=== PATIENT | male | born 1955 | race Caucasian/White ===

== ENCOUNTER 2020-01-09 15:45 | Inpatient (IN) | payer OTHER ==
[~2020-01-09] VITALS: Ht 175.3 cm; Wt 55.1 kg
[2020-01-09 16:50] LABS: BASOPHILS PERCENT AUTO 1 % (0-2); EOSINOPHILS ABSOLUTE AUTO 0.06 K/mm3 (0.00-0.68); EOSINOPHILS PERCENT AUTO 0 % (0-6); Hematocrit 43.9 % (37.0-53.0); Hemoglobin 15.1 g/dL (13.5-17.5); IMMATURE GRAN ABSOLUTE AUTO 0.06 K/mm3 (0.00-0.10); IMMATURE GRAN PERCENT AUTO 0 % (0-1); LYMPHOCYTES ABSOLUTE AUTO 3.98 K/mm3 (0.84-5.20); LYMPHOCYTES PERCENT AUTO 26 % (21-46); MONOCYTES ABSOLUTE AUTO 0.77 K/mm3 (0.16-1.47); MONOCYTES PERCENT AUTO 5 % (4-13); Mean Corpuscular HGB 32.5 pg (26.0-34.0); Mean Corpuscular HGB Conc 34.4 g/dL (31.5-36.5); Mean Corpuscular Volume 95 fL (80-100); Mean Platelet Volume 8.8 fL (9.1-12.4); NEUTROPHILS ABSOLUTE AUTO 10.53 K/mm3 (1.96-9.15); NEUTROPHILS PERCENT AUTO 68 % (41-73); Platelet Count 492 K/mm3 (150-400); RDW Coefficient Variation 12.7 % (11.7-14.2); RDW Standard Deviation 43.8 fL (35.1-46.3); Red Blood Cell Count 4.64 M/mm3 (4.30-5.90)
[2020-01-09 17:04] LABS: International Normalized Ratio 0.97; Prothrombin Time Results 10.4 Sec (9.7-11.5)
[2020-01-09 17:06] LABS: Alanine Aminotransfer (ALT/SGP 23 U/L (12-78); Albumin, Blood 3.7 g/dL (3.4-5.0); Albumin/Globulin Ratio 0.7 (0.8-1.8); Alk Phos 133 U/L (50-136); Anion Gap 8 mmol/L (6-16); Aspartate Aminotrans (AST/SGOT 17 U/L (12-37); Bilirubin, Total 0.5 mg/dL (0.1-1.0); Blood Urea Nitrogen 19 mg/dL (8-24); Bun/Creatinine Ratio 17.1 (12.0-20.0); CO2, Blood 26 mmol/L (21-32); Calcium, Blood 9.6 mg/dL (8.5-10.1); Chloride, Blood 102 mmol/L (98-108); Creatinine, Blood 1.11 mg/dL (0.60-1.20); Globulin, Blood 5.2 g/dL (2.2-4.0); Glomerular Filtration Rate >60 (60-); Glucose, Blood 98 mg/dL (70-99); Potassium, Blood 3.8 mmol/L (3.5-5.5); Sodium, Blood 136 mmol/L (136-145); Total Protein, Blood 8.9 g/dL (6.4-8.2)
[2020-01-09] MEDS ORDERED: BLOOD PRESSURE PILL (21:04)
[2020-01-09] MEDS ORDERED: TIOT18 INH (21:43)
[2020-01-09] MEDS ORDERED: Guaifenesin Wit10 ML PO (21:43)
[2020-01-09] MEDS ORDERED: ALBU90OI INH (21:43)
[2020-01-09 22:09] LABS: Source, Urine Clean Catch
[2020-01-09 22:12] LABS: Bilirubin, Urine Neg (Neg); Blood, Urine 4+ (Neg); Glucose Qualitative, Urine Neg (Neg); Ketones, Urine Neg (Neg); Leukocyte Esterase, Urine 3+ (Neg); Nitrite, Urine Pos (Neg); Protein, Urine 2+ (Neg); Specific Gravity, Urine 1.015 (1.003-1.022); Urobilinogen, Urine NORM (Normal); pH, Urine 6.5 (5.0-8.0)
[2020-01-09 22:14] LABS: Appearance, Urine Cloudy (Clear); Color, Urine Yellow (P-Yellow)
[2020-01-09 22:19] LABS: Bacteria Many /hpf; Red Blood Cells, Urine 0-2 /hpf (0-2); Squamous Epithelial Cells Few /hpf (Few); White Blood Cells, Urine TNTC /hpf (0-5)
[2020-01-10 05:21] LABS: BASOPHILS ABSOLUTE AUTO 0.07 K/mm3 (0.00-0.23); BASOPHILS PERCENT AUTO 1 % (0-2); EOSINOPHILS ABSOLUTE AUTO 0.08 K/mm3 (0.00-0.68); EOSINOPHILS PERCENT AUTO 1 % (0-6); Hematocrit 41.8 % (37.0-53.0); Hemoglobin 14.5 g/dL (13.5-17.5); IMMATURE GRAN ABSOLUTE AUTO 0.06 K/mm3 (0.00-0.10); IMMATURE GRAN PERCENT AUTO 0 % (0-1); LYMPHOCYTES ABSOLUTE AUTO 2.27 K/mm3 (0.84-5.20); LYMPHOCYTES PERCENT AUTO 17 % (21-46); MONOCYTES ABSOLUTE AUTO 0.78 K/mm3 (0.16-1.47); MONOCYTES PERCENT AUTO 6 % (4-13); Mean Corpuscular HGB 32.2 pg (26.0-34.0); Mean Corpuscular HGB Conc 34.7 g/dL (31.5-36.5); Mean Corpuscular Volume 93 fL (80-100); Mean Platelet Volume 8.6 fL (9.1-12.4); NEUTROPHILS ABSOLUTE AUTO 10.11 K/mm3 (1.96-9.15); NEUTROPHILS PERCENT AUTO 76 % (41-73); Platelet Count 450 K/mm3 (150-400); RDW Coefficient Variation 12.4 % (11.7-14.2); RDW Standard Deviation 42.6 fL (35.1-46.3); Red Blood Cell Count 4.51 M/mm3 (4.30-5.90); White Blood Cell Count 13.37 K/mm3 (4.00-11.30)
--- NOTE | 2020-01-10 05:38 | NUR ---
SHIFT SUMMARY NEW ADMIT TO FLOOR EARLIER THIS AM. AOX4. VSS. TELE NSR HR 70'S. DENIES PAIN, N/V OR DYSPNEA. ADMITTED FOR LRG R KIDNEY STONE, UTI & HYDRONEPHROSIS ALONG c EXTENSIVE MUCUS PLUGGING IN LLL. PLAN TO HAVE POSSIBLE KIDNEY STENTING PROCEDURE BY SUMMER TODAY, THEREFORE PT HAS BEEN NPO. PT DENIES FLANK PAIN, HAS BEEN UP TO URINATE W/O PAIN. SPO2 >90% ON RA. E/U RESPIRATIONS. LUNGS SOUND DIM IN BASES. CALL LIGHT IN REACH.
[2020-01-10 05:41] LABS: Alanine Aminotransfer (ALT/SGP 18 U/L (12-78); Albumin, Blood 3.2 g/dL (3.4-5.0); Albumin/Globulin Ratio 0.6 (0.8-1.8); Alk Phos 121 U/L (50-136); Anion Gap 9 mmol/L (6-16); Aspartate Aminotrans (AST/SGOT 16 U/L (12-37); Bilirubin, Total 0.4 mg/dL (0.1-1.0); Blood Urea Nitrogen 16 mg/dL (8-24); Bun/Creatinine Ratio 18.2 (12.0-20.0); CO2, Blood 23 mmol/L (21-32); Calcium, Blood 9.3 mg/dL (8.5-10.1); Chloride, Blood 107 mmol/L (98-108); Creatinine, Blood 0.88 mg/dL (0.60-1.20); Glomerular Filtration Rate >60 (60-); Glucose, Blood 100 mg/dL (70-99); Potassium, Blood 3.1 mmol/L (3.5-5.5); Sodium, Blood 139 mmol/L (136-145); Total Protein, Blood 8.2 g/dL (6.4-8.2)
[2020-01-10 14:49] LABS: Source, Urine Catheter
[2020-01-10 15:11] LABS: Color, Urine Yellow (P-Yellow)
[2020-01-10 15:14] LABS: Bacteria Many /hpf; Squamous Epithelial Cells Not Seen /hpf (Few); White Blood Cells, Urine TNTC /hpf (0-5)
--- NOTE | 2020-01-10 17:01 | NUR ---
SHIFT SUMMARY PT OUT TO DIGITAL CIRCUIT DESIGNER FOR NEPHROSTOMY PLACEMENT. RETURNED APPROX 1405 WITH [facility] RN STAYING FOR A SHORT TIME WITH PT. RETURNED DROWSY BUT AROUSABLE. FELT NAUSEATED AND ZOFRAN GIVEN WITH EFFECT. HAS BEEN SLEEPING SINCE RETURN WITH VS CHECKED REGULARLY. HAS BECOME MORE AWAKE AFTERNOON HAS PROGRESSED. ENCOUARGED PT TO CALL FOR HIS FIRST TRIP TO BATHROOM. NFEPHROSTOMY DRAINING THICK WHITE GREEN PURULENT DISCHARGE. HAS BEEN QUITE SWEATY UPON RETURN TO ROOM BUT DOESN'T FEEL DIAPHORETIC AFTER BEING BACK ON FLOOR FOR A PERIOD OF TIME. DIET ORDERED FOR SUPPER. WILL MONITER TOLERATION OF MEAL. REPORTS FEELING SORE BUT DENIES PAIN.
--- NOTE | 2020-01-11 05:22 | NUR ---
SHIFT SUMMARY AOX4. VSS. TELE NSR @80. HAD STENT & NEPHROSTOMY PLACE IN R KIDNEY YESTERDAY 01/10/20. NEPHROSTOMY BANDAGE WAS PEELING OFF, REINFORCED c TEGADERM DRESSING. NEPHROSTOMY BAG HAD THICK, CLOUDY, ABREU, PURULENT, FOUL SMELLING DRAINAGE. PT REPORTED BURNING c URINATION 1X, HOWEVER THIS AM HE DENIES & STATES HIS URINE IS "MORE CLEAR". PT REPORTED PRESSURE RT FLANK, RATING 4-5/10 FOR PAIN, MEDICATED 2X c 5MG OXYCODONE. IND IN ROOM. CALL LIGHT IN REACH.
[2020-01-11] MEDS ORDERED: HYDCHL25 PO (10:55)
[2020-01-11] MEDS ORDERED: IBU800 MG PO (10:56)
[2020-01-11] MEDS ORDERED: OXYC5 PO (12:09)
[2020-01-11] MEDS ORDERED: CEFD300 PO (12:10)
[2020-01-11 12:41] LABS: BASOPHILS ABSOLUTE AUTO 0.07 K/mm3 (0.00-0.23); BASOPHILS PERCENT AUTO 0 % (0-2); EOSINOPHILS ABSOLUTE AUTO 0.03 K/mm3 (0.00-0.68); EOSINOPHILS PERCENT AUTO 0 % (0-6); Hematocrit 44.4 % (37.0-53.0); IMMATURE GRAN ABSOLUTE AUTO 0.06 K/mm3 (0.00-0.10); IMMATURE GRAN PERCENT AUTO 0 % (0-1); LYMPHOCYTES ABSOLUTE AUTO 3.24 K/mm3 (0.84-5.20); LYMPHOCYTES PERCENT AUTO 21 % (21-46); MONOCYTES ABSOLUTE AUTO 0.83 K/mm3 (0.16-1.47); MONOCYTES PERCENT AUTO 5 % (4-13); Mean Corpuscular HGB 32.4 pg (26.0-34.0); Mean Corpuscular HGB Conc 33.8 g/dL (31.5-36.5); Mean Corpuscular Volume 96 fL (80-100); Mean Platelet Volume 9.1 fL (9.1-12.4); NEUTROPHILS ABSOLUTE AUTO 11.48 K/mm3 (1.96-9.15); NEUTROPHILS PERCENT AUTO 73 % (41-73); Platelet Count 476 K/mm3 (150-400); RDW Coefficient Variation 12.5 % (11.7-14.2); RDW Standard Deviation 44.3 fL (35.1-46.3); Red Blood Cell Count 4.63 M/mm3 (4.30-5.90); White Blood Cell Count 15.71 K/mm3 (4.00-11.30)
[2020-01-11 12:53] LABS: Alanine Aminotransfer (ALT/SGP 17 U/L (12-78); Albumin, Blood 3.3 g/dL (3.4-5.0); Albumin/Globulin Ratio 0.6 (0.8-1.8); Alk Phos 131 U/L (50-136); Anion Gap 8 mmol/L (6-16); Aspartate Aminotrans (AST/SGOT 18 U/L (12-37); Bilirubin, Total 0.4 mg/dL (0.1-1.0); Blood Urea Nitrogen 17 mg/dL (8-24); Bun/Creatinine Ratio 14.5 (12.0-20.0); CO2, Blood 25 mmol/L (21-32); Calcium, Blood 9.4 mg/dL (8.5-10.1); Chloride, Blood 103 mmol/L (98-108); Creatinine, Blood 1.17 mg/dL (0.60-1.20); Globulin, Blood 5.5 g/dL (2.2-4.0); Glomerular Filtration Rate >60 (60-); Glucose, Blood 98 mg/dL (70-99); Potassium, Blood 4.1 mmol/L (3.5-5.5); Sodium, Blood 136 mmol/L (136-145); Total Protein, Blood 8.8 g/dL (6.4-8.2)
--- NOTE | 2020-01-11 15:30 | NUR ---
DISCHARGE INSTRUCTIONS COMPLETED AD DISCUSSED WITH PT EXPRESSING UNDERSTANDING. EDUCATED ON HOW TO EMPTY NEPHROSTOMY BAG AND DRESSING CARE. DISCUSSED THE MONITERING OF OUTPUT AND NOTIFY MD IF OUTPUT STOPS. TO CURB VIA W/C.
== END 2020-01-11 15:25 | disposition home or self-care (01) | DRG 690 ==
LOC: ER 15:45 → MEDS 15:46
PROVIDERS: Emergency Medicine; Internal Medicine; Physician Assistant; Radiology Diagnostic Radiology; ADMIT Internal Medicine
PROC: 0T9330Z Drainage of Right Kidney Pelvis with Drainage Device, Percutaneous Approach (ICD-10-PCS; principal; 2020-01-10)
PROC: 0T767DZ Dilation of Right Ureter with Intraluminal Device, Via Natural or Artificial Opening (ICD-10-PCS; 2020-01-10)
DX: N13.6 Pyonephrosis (principal); J44.9 Chronic obstructive pulmonary disease, unspecified; F17.210 Nicotine dependence, cigarettes, uncomplicated; E87.6 Hypokalemia; B96.20 Unspecified Escherichia coli [E. coli] as the cause of diseases classified elsewhere
CPT/HCPCS: 36415; 50695; 71260; 76937; 80053; 81001; 83605; 85025; 85610; 87040; 87077; 87086; 87186; 93005; 93010; 94640; 94667; 96361; 96365; 99152; 99153; 99284-25; C1729; C1769; C1887; C2617; G0378; J0690; J0696; J1650; J2250; J2405; J2704; J3010; J3480; J7030; J7040; Q9967; U0003

== ENCOUNTER → 2020-05-14 | Outpatient (CLI) | payer MEDICARE, OTHER ==
[~2020-05-14] MED LIST: ALBU90OI INH; BLOOD PRESSURE PILL; CEFD300 PO; Guaifenesin Wit10 ML PO; HYDCHL25 PO; IBU800 MG PO; OXYC5 PO; TIOT18 INH
[2020-05-25 19:07] LABS: BRUSHITE 1.96 ratio (0.00-3.00); CALCIUM OXALATE 2.86 ratio (0.00-6.00); CALCIUM, URINE 4.7 mg/dL (Not Estab.); CALCIUM, URINE 61.1 mg/24 hr (100.0-300.0); CHLORIDE URINE 65 (110-250); CITRIC ACID (CITRATE) 14 mg/L (Not Estab.); CITRIC ACID(CITRATE) 18 mg/24 hr (320-1240); CREATININE, URINE 53.9 mg/dL (Not Estab.); CREATININE, URINE 700.7 mg/24 hr (1000.0-2000.0); MAGNESIUM, URINE 7.8 mg/dL (Not Estab.); MONOSODIUM URATE 1.91 ratio (0.00-4.00); OSMOLALITY, URINE 308 (300-900); SODIUM, URINE 75 mmol/L (Not Estab.); SODIUM, URINE 98 (58-337); STRUVITE 0.36 ratio (0.00-1.00); URINE VOLUME 1300 mL/24 hr (800-1800); URINE VOLUME (PRESERVATIVE) 1300 mL/24 hr (800-1800)
== END | disposition home or self-care (01) ==
LOC: LAB 06:30 → LAB SHORT 06:30 → LAB FUT 04-03 14:00
PROVIDERS: Urology
DX: N13.2 Hydronephrosis with renal and ureteral calculous obstruction (principal)
CPT/HCPCS: 81003; 81050; 82131; 82140; 82340; 82436; 82507; 82570; 83735; 83935; 83945; 84105; 84133; 84300; 84392; 84560

== ENCOUNTER → 2020-08-29 | Outpatient (CLI) | payer MEDICARE, OTHER ==
[2020-09-12 19:08] LABS: BRUSHITE 0.89 ratio (0.00-3.00); CALCIUM OXALATE 0.93 ratio (0.00-6.00); CHLORIDE URINE 101 (110-250); CITRIC ACID (CITRATE) 77 mg/L (Not Estab.); CITRIC ACID(CITRATE) 169 mg/24 hr (320-1240); CREATININE, URINE 1047.2 mg/24 hr (1000.0-2000.0); CREATININE, URINE 47.6 mg/dL (Not Estab.); MAGNESIUM, URINE 5.5 mg/dL (Not Estab.); MONOSODIUM URATE 1.04 ratio (0.00-4.00); OSMOLALITY, URINE 275 (300-900); SODIUM, URINE 132 (58-337); SODIUM, URINE 60 mmol/L (Not Estab.); STRUVITE 0.12 ratio (0.00-1.00); URIC ACID 0.09 ratio (0.00-1.20); URINE VOLUME 2200 mL/24 hr (800-1800); URINE VOLUME (PRESERVATIVE) 2200 mL/24 hr (800-1800)
== END | disposition home or self-care (01) ==
LOC: LAB 12:34 → LAB SHORT 12:34 → EDSTATUS 08-21 18:05 → LAB FUT 08-21 18:05
PROVIDERS: Urology
DX: N20.0 Calculus of kidney (principal)
CPT/HCPCS: 81003; 81050; 82131; 82140; 82340; 82436; 82507; 82570; 83735; 83935; 83945; 84105; 84133; 84300; 84392; 84560

== ENCOUNTER → 2022-10-03 | Outpatient (CLI) | payer MEDICARE, OTHER ==
[2022-10-03 07:41] LABS: Source, Urine Clean Catch
[2022-10-03 13:17] LABS: Appearance, Urine Clear (Clear); Bilirubin, Urine Neg (Neg); Blood, Urine Neg (Neg); Color, Urine Yellow (P-Yellow); Glucose Qualitative, Urine Neg (Neg); Ketones, Urine Neg (Neg); Leukocyte Esterase, Urine Neg (Neg); Nitrite, Urine Neg (Neg); Protein, Urine Neg (Neg); Urobilinogen, Urine NORM (Normal)
== END | disposition home or self-care (01) ==
LOC: LAB SHORT 07:15 → LAB 07:15
PROVIDERS: Nurse Practitioner Family
DX: N39.0 Urinary tract infection, site not specified (principal)
CPT/HCPCS: 81003

== ENCOUNTER 2023-03-11 05:54 | Day surgery (SDC) | payer MEDICARE, OTHER ==
[2023-03-11] VITALS (18 sets, daily range): BP systolic 101–136; BP diastolic 45–85
[~2023-03-11] VITALS: Ht 169 cm; Wt 58.0 kg
[~2023-03-11 05:54] MED LIST changes: +ACET500 PO; +AMLO10 PO; +ASPI81CH PO; +ATOR10 PO; +POTCIT10 PO
--- NOTE | 2023-03-11 07:04 | NUR ---
History, Chart, Medications and Allergies reviewed before start of procedure. Ambulatory in Day Surgery. Pre-Op teaching done. Pt verbalizes understanding. Patient confirms NPO status and agrees with scheduled surgery. Patient reports completing Chlorhexadine shower X2 prior to admission to hospital. Surgical site prepped with 2% Chlorhexidine cloth wipe. Lungs clear T/O to Auscultation. Patient States Post-Procedure ride home has been arranged.
--- NOTE | 2023-03-11 11:37 | NUR ---
PATIENT ARRIVED FROM PACU TODAY. POD 0 LEFT TOTAL KNEE PATIENT IS A&OX4. VS ARE WNL AND IS ON RA. PATIENT DENIES PAIN AT THIS TIME DUE TO HAVING HAD A SPINAL DURING THE PROCEDURE. HE IS UNABLE TO FEEL HIS LEGS FROM THE TOP OF HIS KNEES DOWN. PEDALS PULSES ARE STRONG AND WARM TO TOUCH. HE HAS AN GIOVANNI WRAP ON THE LEFT KNEE THAT IS C/D/I WITH POLAR PACK IN PLACE. HE IS TOLERATING SMALL AMOUNTS OF PO INTAKE. HE IS LAYING IN BED WITH CALL LIGHT IN REACH.
[2023-03-11] MEDS ORDERED: PROMETHAZINE12.5 M1 PO (14:47)
[2023-03-11] MEDS ORDERED: OXYC5 PO (14:47)
[2023-03-11] MEDS ORDERED: ASPI81CH PO (14:48)
--- NOTE | 2023-03-11 17:26 | NUR ---
SHIFT SUMMARY: POD 0 LEFT TOTAL KNEE PATIENT IS A&OX4. VS ARE WNL AND IS ON RA. PAIN IS MANAGED AT THIS TIME WITH PO OXY, TYLENOL AND IV TORADOL. HIS LEFT KNEE HAS AN AQUACEL THAT IS C/D/I. DENIES NUMBNESS OR TINGLING. HE IS TOLERATING PO INTAKE AND IS VOIDING. HE IS A SBA WITH FWW AND GAIT BELT. PATIENT DID WORK WITH PHYSICAL THERAPY ONCE TODAY. HE IS CURRENTLY IN THE RECLINER CHAIR WITH CALL LIGHT IN REACH. THE PLAN IS TO CONTINUE PAIN MANAGEMENT AND THEN TO WORK WITH PHYSICAL THERAPY AGAIN TOMORROW. THEN IF APPROPRIATE TO, HE WILL BE DISCHARGED HOME.
[2023-03-12 01:07] VITALS: BP 123/73
[2023-03-12 04:36] VITALS: BP 130/74
--- NOTE | 2023-03-12 04:37 | NUR ---
SHIFT SUMMARY NO ACUTE CHANGE TO REPORT OVERNIGHT, PT POD 0 LEFT TOTAL KNEE. HE HAS RESTED MOST THE NIGHT. PT HAS BEEN UP AND AMBULATING, TOLERATING PO INTAKE. VOIDING. DRESSING C/D/I TO LEFT KNEE. PLAN IS FOR DC TODAY. BED IN LOWEST POSITION, CALL LIGHT WITHIN REACH.
[2023-03-12 04:54] LABS: BASOPHILS ABSOLUTE AUTO 0.02 K/mm3 (0.00-0.23); BASOPHILS PERCENT AUTO 0 % (0-2); EOSINOPHILS PERCENT AUTO 0 % (0-6); Hematocrit 35.8 % (37.0-53.0); Hemoglobin 12.8 g/dL (13.5-17.5); IMMATURE GRAN ABSOLUTE AUTO 0.06 K/mm3 (0.00-0.10); IMMATURE GRAN PERCENT AUTO 0 % (0-1); LYMPHOCYTES ABSOLUTE AUTO 1.65 K/mm3 (0.84-5.20); LYMPHOCYTES PERCENT AUTO 12 % (21-46); MONOCYTES ABSOLUTE AUTO 0.67 K/mm3 (0.16-1.47); MONOCYTES PERCENT AUTO 5 % (4-13); Mean Corpuscular HGB 33.4 pg (26.0-34.0); Mean Corpuscular HGB Conc 35.8 g/dL (31.5-36.5); Mean Corpuscular Volume 94 fL (80-100); NEUTROPHILS ABSOLUTE AUTO 11.58 K/mm3 (1.96-9.15); NEUTROPHILS PERCENT AUTO 83 % (41-73); Platelet Count 375 K/mm3 (150-400); RDW Coefficient Variation 12.3 % (11.7-14.2); RDW Standard Deviation 42.2 fL (35.1-46.3); Red Blood Cell Count 3.83 M/mm3 (4.30-5.90); White Blood Cell Count 13.98 K/mm3 (4.00-11.30)
[2023-03-12 05:14] LABS: Bun/Creatinine Ratio 13.3 (12.0-20.0); Calcium, Blood 8.5 mg/dL (8.5-10.1); Creatinine, Blood 0.83 mg/dL (0.60-1.20); Magnesium, Blood 1.9 mg/dL (1.6-2.4); Potassium, Blood 3.2 mmol/L (3.5-5.5)
[2023-03-12 07:21] VITALS: BP 136/73
[2023-03-12 10:29] VITALS: BP 108/74
--- NOTE | 2023-03-12 10:45 | NUR ---
DISCHARGE PT PROVIDED WITH WRITTEN AND VERBAL DISCHARGE INSTRUCTIONS; HE AND HIS SON REPORTED UNDERSTANDING. PT PROVIDED WITH CLEAN AQUACEL DRESSINGS. PT CLEARED THERAPY AND MET ALL GOALS PRIOR TO DISCHARGE. PT ASSISTED OUT IN W/C BY JOSE MIGUEL LOMAX AT 1045.
== END 2023-03-12 10:45 | disposition home or self-care (01) ==
LOC: ORSCMMR 05:54 → ORD 07:30 → ORSCMMR 07:30 → ORD 10:45 → ORSCMMR 10:45 → SURS 11:16 → ORSCMMR 03-12 10:45
PROVIDERS: Orthopaedic Surgery
PROC: 0SRD0J9 Replacement of Left Knee Joint with Synthetic Substitute, Cemented, Open Approach (ICD-10-PCS; principal; 2023-03-11 07:30)
DX: M17.0 Bilateral primary osteoarthritis of knee (principal); Z87.891 Personal history of nicotine dependence; E78.00 Pure hypercholesterolemia, unspecified; Z79.899 Other long term (current) drug therapy; Z79.82 Long term (current) use of aspirin
CPT/HCPCS: 36415; 73560-LT; 80048; 83735; 85025; 97110; 97116; 97162; A9270; C1713; C1776; J0171; J0690; J0735; J1100; J1885; J2250; J2405; J2704; J2765; J2795; J3010; J7120